=== PATIENT | male | born 1995 | race Caucasian/White ===

== ENCOUNTER 2024-02-04 18:00 | Emergency (ER) | payer BC, SELFPAY ==
[2024-02-04 18:13] VITALS: BP 129/90
[2024-02-04 18:36] VITALS: BP 126/71
[2024-02-04 18:47] VITALS: BMI 27.6
[2024-02-04 18:54] LABS: % Basophils 0.1 % (0-2); % Immature Granulocytes 0.2 % (0-0.5); % Lymphocytes 17.8 % (20.5-51.1); % Monocytes 11.9 % (1.7-9.3); Absolute Lymphocytes 1.6 10^3/uL (1.2-3.4); Absolute Monocytes 1.1 10^3/uL (0.1-0.6); Absolute Neutrophils 6.5 10^3/uL (1.4-6.5); Hematocrit 44.7 % (39.0-52.0); Hemoglobin 15.9 g/dL (13.0-18.0); Mean Corp Hgb Conc. 35.6 g/dL (33.0-37.0); Mean Corpuscular Hgb 28.5 pg (27.0-31.0); Mean Corpuscular Volume 80.1 fL (80.0-94.0); Mean Platelet Volume 9.8 fL (7.4-10.4); Nucleated Red Blood Cells % 0 % (-); Platelet Count 168 10^3/uL (130-400); Red Blood Cell Count 5.58 10^6/uL (4.70-6.10); Red Cell Dist. Width 11.7 % (11.5-14.5); White Blood Cell Count 9.2 10^3/uL (4.8-10.8)
[2024-02-04] MEDS: NSS 1000 IV (18:55)
[2024-02-04] MEDS: TYLENOL 1000 MG PO (18:56)
--- NOTE | 2024-02-04 18:59 | ED.GENMED ---
History of Present Illness
General
Chief Complaint: Fever
Time Seen by Provider: 02/04/24 18:36
History of Present Illness
History of Present Illness:
Patient is a 29-year-old man who is otherwise healthy presenting to the emergency department for fever. Patient stated the past 4 days he has had fever, cough, headache and decreased p.o. He has been tolerating water. His is at bedside who
has started to develop similar symptoms. He denies any chest pain or difficulty breathing. No nausea vomiting or diarrhea. He has been taking Tylenol as well as DayQuil and NyQuil with some relief.
Past History
Past History
ED Past Medical History: None
ED Past Surgical History: None
Social History
Tobacco: Non-smoker
Phy Exam
Physical Exam
Physical Exam:
GENERAL: in no acute distress
HEENT: normocephalic, extraocular movements intact, dry oral mucosa
NECK: normal inspection
RESPIRATORY: no respiratory distress, coarse breath sounds at the bases
CARDIOVASCULAR: regular rate and rhythm
ABDOMEN/: soft, non-distended, non-tender to palpation, no rebound or guarding
EXTREMITIES: non-tender, no edema/swelling
NEUROLOGIC: awake and alert, moves all extremities
SKIN: warm
Sepsis
Sepsis Screening
Sepsis Assessment: Sepsis Ruled Out
Sepsis Screen
Sepsis Screen: Sepsis Ruled Out
Date: 02/04/24
Time: 21:10
Course
Orders/Labs/Results
Orders:
Orders
02/04/24 18:43
CMP [Comprehensive Metabolic Panel] Urgent
Complete Blood Count/With Diff Urgent
02/04/24 18:44
COVID-19 Antigen Urgent
Source: Nasal Swab
Influenza A+B Rapid Molecular Urgent
JOHNNIE Source: Nasal Swab
Specimen Description:
02/04/24 18:51
Acetaminophen [Tylenol] 1,000 mg .ROUTE .[facility]
02/04/24 18:53
Acetaminophen [Tylenol] 1,000 mg PO NOW STA
02/04/24 18:54
CXR2 [CR Chest - 2 Views ] Urgent
Comment:
Reason For Exam: fever, cough
02/04/24 18:55
0.9% Sodium Chloride 1000 ml [Nss] 1,000 ml IV BOLUS
02/04/24 21:08
Doxycycline [Vibramycin] 100 mg PO NOW STA
Abnormal Lab Results
02/04/24
18:43
Absolute Monos (auto) 1.1 H 10^3/uL
(0.1-0.6)
Lymphocytes % 17.8 L %
(20.5-51.1)
Monocytes % 11.9 H %
(1.7-9.3)
Chloride 97 L mmol/L
(98-107)
Glucose 110 H mg/dl
(70-99)
02/04/24 18:43
02/04/24 18:43
Vital Signs
Initial and Last Documented VS:
Initial Vital Signs
Temp Pulse Resp BP Pulse Ox
102.4 F H 116 18 129/90 95
02/04/24 18:13 02/04/24 18:13 02/04/24 18:13 02/04/24 18:13 02/04/24 18:13
Last Documented Vital Signs
Temp Pulse Resp BP Pulse Ox
100.3 F 81 18 124/77 98
02/04/24 20:12 02/04/24 21:00 02/04/24 20:12 02/04/24 21:00 02/04/24 21:00
MDM/Problems Addressed
Differential Diagnosis Includes:
29-year-old man is otherwise healthy presenting to the emergency department with 4 days of fever cough and decreased p.o. Vitals here notable for being febrile as well as tachycardic. On exam he does have dry oral mucosa with coarse breath sounds
at the bases. Differential occludes a viral syndrome such as COVID or flu versus pneumonia. History and exam not consistent with tracheitis or epiglottitis as he is very well-appearing. Will obtain blood work to evaluate for any electrolyte
derangement or kidney injury from the decreased p.o. Will check COVID flu swab. Will obtain x-ray. Will give IV fluids as well as Tylenol.
*Critical Care Note
Total Time (30-74mins, 75-104mins- exclusive of procedures): Not Applicable
Update Note
Update Note:
Chest x-ray per my interpretation with right lower lobe opacity. Will give antibiotics for pneumonia. Will first dose here. On reevaluation patient is feeling much better. Ambulatory pulse ox was normal. Will discharge at this time with strict
return precautions given
ED Attending Note
-
Portions of this chart may have been created with voice recognition software.� Occasional wrong word or��sound alike� substitutions may have occurred due to the inherent limitations of voice recognition software.
Discharge Plan
Departure
Patient Disposition: Home (Routine Discharge)
Date of Disposition: 02/04/24
Time of Disposition: 21:06
Patient with high blood pressure during this ER visit?: No
Discharge Problem:
Pneumonia
Instructions: Pneumonia, Adult (DC)
Prescriptions:
New
doxycycline hyclate 100 mg capsule
100 mg PO BID 5 Days Qty: 10 0RF
No Action
hydrocodone-acetaminophen [Vicodin] 1 EACH tablet
1 ea PO Q4HPRN PRN (Reason: pain) Qty: 20 0RF
ondansetron HCl 4 MG tablet
4 mg PO TIDPRN PRN (Reason: nausea and vomiting) Qty: 15 0RF
Referrals:
Aneesh Pathak MD [Family Provider] -
Activity Restrictions/Additional Instructions:
You were seen in the Emergency Department today for a fever. While you were here we performed blood work, which was reassuring. You are found to have pneumonia.
We would like for you to follow up with your primary care physician for further evaluation. If you experience fever, worsening of your symptoms, or develop any other new or concerning symptoms, please return to the Emergency Department immediately.
Please see the attached sheet for additional information.
Interventions
Interventions:
*Risk Screen - Suicide Last Done: 02/04/24 18:13
*General Assessment Last Done: 02/04/24 18:13
*Neglect/Abuse Screening Last Done: 02/04/24 18:13
Discharge Date and Time
Print Language: TRINIDADIAN
[2024-02-04 19:00] VITALS: BP 139/83
[2024-02-04 19:12] LABS: COVID-19 Antigen Negative (Negative)
[2024-02-04 19:19] LABS: ALT (SGPT) 23 U/L (0-50); AST (SGOT) 27 U/L (17-59); Alkaline Phosphatase 61 U/L (38-126); Blood Urea Nitrogen 11 mg/dl (9-20); Calcium 9.7 mg/dl (8.4-10.2); Carbon Dioxide 25 mmol/L (22-30); Chloride 97 mmol/L (98-107); Estimated Creatinine Clearance > 125 ml/min; Glucose 110 mg/dl (70-99); Potassium 4.3 mmol/L (3.5-5.1); Sodium 141 mmol/L (135-145); Total Protein 7.9 g/dl (6.3-8.2); eGFR > 60.00
[2024-02-04 20:12] VITALS: BP 125/74
[2024-02-04 21:00] VITALS: BP 124/77
[2024-02-04] MEDS: VIBRAMYCIN 100 MG PO (21:32)
== END 2024-02-04 21:55 | disposition home or self-care (01) ==
LOC: EMR 18:00
PROVIDERS: EMERGENCY PHYSICIAN Student in an Organized Health Care Education/Training Program; FAMILY PHYSICIAN Family Medicine
DX: J18.9 Pneumonia, unspecified organism (principal); R51.9 Headache, unspecified; Z11.52 Encounter for screening for COVID-19
CPT/HCPCS: 99284; 96360; 71046; 80053; 85025; 87502; 87811